=== PATIENT | male | born 2000 | race Caucasian/White ===

== ENCOUNTER 2022-07-26 13:44 | Outpatient (CLI) | payer OTHER, SELFPAY ==
--- NOTE | ~2022-07-26 | XR_ITS ---
XR ribs LT 2V w CXR 2V DATE: 07/26/2022 14:03 INDICATION: Chest, rib pain TECHNIQUE: PA and lateral chest. 4 views of the left ribs. COMPARISON: None FINDINGS: Bilateral hyperinflation. No pulmonary infiltrate or consolidation, pleural effusion or pul monary vascular congestion or pneumothorax is detected. Normal heart size. No hilar or mediastinal enlargement. No left rib fracture or bone destruction. IMPRESSION: Bilateral hyperinflation Reviewed, dictated and finalized at location B. IMPRESSION: Bilateral hyperinflation
== END 2022-07-26 13:45 ==
PROVIDERS: PCP Family Medicine; Visit Provider Physician Assistant
DX: R07.89 Other chest pain (principal); R91.8 Other nonspecific abnormal finding of lung field
CPT/HCPCS: 71046; 71100